=== PATIENT | male | born 1945 | race Caucasian/White ===

== ENCOUNTER 2018-03-19 05:37 | Day surgery (SDC) | payer OTHER ==
[~2018-03-19] VITALS: Ht 185.4 cm; Wt 127.8 kg
[~2018-03-19 05:37] MED LIST: COZAAR100 MG PO; FOLIC ACID1 MG PO; GLUCOPHAGE1000 MG PO; LANTUS 3 M100 UNITS1 SC; LIPITOR40 MG PO; LO-DOSE ASPIRIN81 M2 PO; MICROZIDE12.5 M1 PO; NEXIUM40 MG PO; PRESERVISION T1 EACH PO; REMI IV; TENORMIN50 MG PO; ULTRAM50 MG PO
[2018-03-19 06:36] VITALS: BP 173/84
[2018-03-19] MEDS ORDERED: CYCLOBENZAPRINE10 MG PO (10:18)
[2018-03-19] MEDS ORDERED: HYDROCODON-ACE1 EAC7 PO (10:18)
[2018-03-19 12:22] VITALS: BP 178/72
[2018-03-19 16:16] VITALS: BP 158/72
[2018-03-19 21:12] VITALS: BP 160/77
[2018-03-20 00:10] VITALS: BP 179/90
[2018-03-20 04:05] VITALS: BP 167/70
[2018-03-20 07:29] VITALS: BP 147/73
[2018-03-20 12:32] VITALS: BP 169/84
[2018-03-20 15:04] VITALS: BP 152/78
[2018-03-21] VITALS: BP 150/74
[2018-03-21 04:00] VITALS: BP 146/73
[2018-03-21 08:10] VITALS: BP 154/80
[2018-03-21 15:59] VITALS: BP 166/74
[2018-03-21 20:18] VITALS: BP 166/72
[2018-03-21 21:07] VITALS: BP 182/85
[2018-03-22 00:06] VITALS: BP 177/83
[2018-03-22 04:23] VITALS: BP 146/77
[2018-03-22 08:15] VITALS: BP 175/79
[2018-03-22 15:52] VITALS: BP 183/88
[2018-03-22 20:10] VITALS: BP 152/70
[2018-03-23 00:17] VITALS: BP 135/62
[2018-03-23 00:45] VITALS: BP 125/65
[2018-03-23 08:35] VITALS: BP 144/82
== END 2018-03-23 14:27 ==
LOC: SDC 05:37 → 2SOUTH 10:00 → 3EAST 10:00 → CANRESERV 10:45 → ENRESERV 10:45 → SDC 11:37 → 3EAST 12:22 → SDC 16:00 → 3EAST 03-23 14:27
PROVIDERS: Neurological Surgery
PROC: 01NB0ZZ Release Lumbar Nerve, Open Approach (ICD-10-PCS; principal; 2018-03-19)
DX: M48.062 Spinal stenosis, lumbar region with neurogenic claudication (principal); I25.10 Atherosclerotic heart disease of native coronary artery without angina pectoris; I25.2 Old myocardial infarction; E11.9 Type 2 diabetes mellitus without complications; I10 Essential (primary) hypertension
CPT/HCPCS: 72100; 76000; 82948; 94760; 94799; 97530 GO; G0378; G8978 GP CK; G8979 GP CI; J0131; J0330; J0690; J1170; J1885; J2250; J2405; J2710; J3010; J3370; J3480; J7643

== ENCOUNTER 2018-03-23 13:34 | Inpatient (IN) | payer OTHER ==
[~2018-03-23] VITALS: Ht 185.4 cm; Wt 121.0 kg
[~2018-03-23 13:34] MED LIST changes: +CYCLOBENZAPRINE10 MG PO; +HYDROCODON-ACE1 EAC7 PO
[2018-03-23 14:30] VITALS: BP 147/78
[2018-03-24] VITALS: BP 138/63
[2018-03-24 05:46] VITALS: BP 167/77
[2018-03-24 06:18] LABS: HEMATOCRIT 35.7 % (38.0-50.0); HEMOGLOBIN 11.7 G/DL (12.5-16.6); MCH 26.7 PG (29.0-34.0); MCHC 32.8 G/DL (30.0-36.0); MCV 81.5 FL (86-99); PLATELET COUNT 221 K/uL (156-360); RBC DIS.WIDTH-CV 13.8 % (11.8-14.6); RBC DIS.WIDTH-SD 40.7 % (39-53); RED BLOOD COUNT 4.38 M/uL (4.00-5.50); WHITE BLOOD COUNT 8.8 K/uL (4.1-10.2)
[2018-03-24 06:44] LABS: ALBUMIN 3.2 G/DL (3.2-4.8); ALKALINE PHOSPHATASE 79 IU/L (3-129); ALT (GPT) 16 IU/L (3-49); AST (GOT) 19 IU/L (2-34); CHLORIDE 100 MEQ/L (99-109); CREATININE 0.8 MG/DL (0.6-1.3); GFR ESTIMATE (CALCULATED) > 59 mL/min/ (58.99-99999); GLUCOSE 109 mg/dL (70-99); POTASSIUM 3.8 MEQ/L (3.7-5.4); SODIUM 141 MEQ/L (136-147); TOTAL BILIRUBIN 0.9 MG/DL (0.0-1.0); TOTAL PROTEIN 5.7 G/DL (6.4-8.3); UREA NITROGEN (BUN) 15 mg/dL (9-23)
[2018-03-24 15:06] VITALS: BP 176/84
[2018-03-24 15:42] VITALS: BP 156/62
[2018-03-25 05:25] VITALS: BP 159/73
[2018-03-25 15:09] VITALS: BP 119/66
[2018-03-26 04:21] VITALS: BP 153/59
[2018-03-26] MEDS ORDERED: DOCUSATE SODIU100 MG PO (12:46)
[2018-03-26] MEDS ORDERED: SENNA PLUS TAB1 EACH PO (12:46)
== END 2018-03-26 14:05 | DRG 561 ==
LOC: 3WEST 13:34
PROVIDERS: Physical Medicine & Rehabilitation Pain Medicine
PROC: F07M0ZZ Range of Motion and Joint Mobility Treatment of Musculoskeletal System - Whole Body (ICD-10-PCS; principal; 2018-03-23)
DX: Z47.89 Encounter for other orthopedic aftercare (principal); E11.9 Type 2 diabetes mellitus without complications; I25.10 Atherosclerotic heart disease of native coronary artery without angina pectoris; I10 Essential (primary) hypertension; E78.5 Hyperlipidemia, unspecified; G89.18 Other acute postprocedural pain; Z79.82 Long term (current) use of aspirin; Z79.4 Long term (current) use of insulin; I25.2 Old myocardial infarction; Z87.891 Personal history of nicotine dependence; Z98.61 Coronary angioplasty status
CPT/HCPCS: 80053; 82948; 85027; 97110 GO; 97530 GP; J1815